=== PATIENT | female | born 1995 | race Caucasian/White ===

== ENCOUNTER 2018-01-26 17:54 | Emergency (ER) | payer SELFPAY ==
[2018-01-26 18:11] VITALS: BP 119/76
[2018-01-26] MEDS ORDERED: Ketorolac 60 MG/2 ML SDV IM ONE (20:37)
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
--- NOTE | 2018-01-27 15:29 | CR ---
Pelvis and right hip: AP view of the pelvis was obtained as well as AP and frog-leg lateral views of the right hip. Comparison: No previous study. Joint spaces within both hips are maintained. Sacroiliac joints appear within normal limits. No fracture or other abnormality is identified. Impression: 1. No abnormality is identified on AP pelvis or on two-view right hip exam. Diagnostic code #1
--- NOTE | 2018-01-27 15:29 | CR ---
Right clavicle: Two views of the right clavicle were obtained. Comparison: No previous study. No fracture or other abnormality is identified. Impression: 1. No abnormality is identified on two-view right clavicle study. Diagnostic code #1
--- NOTE | 2018-01-27 15:29 | CR ---
Right shoulder: Three views of the right shoulder were obtained. Comparison: No prior right shoulder exam. Glenohumeral and acromioclavicular joints appear within normal limits. No fracture, dislocation or other bony abnormality is identified. Impression: 1. No abnormality is identified on right shoulder study. Diagnostic code #1
--- NOTE | 2018-01-27 15:29 | CR ---
Lumbar spine: AP, lateral and coned-down lateral views centered to the lumbosacral junction were obtained. Comparison: No previous study. Vertebral body heights and disc spaces are maintained. Pedicles as well as transverse and spinous processes are intact. No subluxation or fracture is seen. Impression: 1. No abnormality is identified on three-view lumbar spine study. Diagnostic code #1
== END 2018-01-26 21:35 | disposition home or self-care (01) ==
LOC: JD.ED 17:54
DX: T21.12XA Burn of first degree of abdominal wall, initial encounter (principal); M25.511 Pain in right shoulder; F17.210 Nicotine dependence, cigarettes, uncomplicated; Z79.899 Other long term (current) drug therapy; X12.XXXA Contact with other hot fluids, initial encounter
CPT/HCPCS: 36415; 72100; 73000; 73030; 73502; 81001; 84702; 86900; 86901; 96372; 99284; J1885